=== PATIENT | female | born 1960 | race Caucasian/White ===

== ENCOUNTER 2018-01-08 23:59 | Observation (INO) | payer BC ==
[2018-01-09] MEDS ORDERED: GI COCKTAIL 45 ML (Maalox/Lidocaine) PO ONE (01:17)
[2018-01-09] MEDS ORDERED: Zofran 4 MG/2 ML VIAL IV ONE (01:17)
[2018-01-09] MEDS ORDERED: PROTONIX 40 MG IV IV ONE ×2 (01:17→02:12)
--- NOTE | 2018-01-09 01:26 | ERPHSYRPT ---
- History of Present Illness Time Seen by Provider: 01/09/18 00:50 Historian: patient Exam Limitations: other Patient Subjective Stated Complaint: pain in abdomen just below the sternum Triage Nursing Assessment: Pt A&O x3, complains of abdominal pain just below the sternum, stated that she felt this way at Thanksgiving time, lungs clear, bowel sounds heard in all 4 quadrants, pulses normal, appears to be uncomfortable but no other distress Physician History: PATIENT WITH A HISTORY OF HYPERTENSION COMPLAINS OF EPIGASTRIC PAIN X 2 DAYS, OCCASIONAL RADIATION TO BACK. DENIES NAUSEA, EMESIS OR DIARRHIEA Timing/Duration: day(s) Activities at Onset: none Quality: sharpness Abdominal Pain Onset Location: epigastric Pain Radiation: back Severity of Pain-Max: moderate Severity of Pain-Current: moderate Modifying Factors: Improves With: eating Associated Symptoms: heartburn Previous symptoms: same symptoms as today Allergies/Adverse Reactions: No Known Drug Allergies Allergy (Verified 01/09/18 00:58) Home Medications: Benazepril HCl [Benazepril HCl] 1 tab PO DAILY 01/09/18 [History] Hydrochlorothiazide [Hydrochlorothiazide] 1 tab PO DAILY 01/09/18 [History] Meloxicam [Meloxicam] 1 tab PO DAILY 01/09/18 [History] Metoprolol Succinate [Metoprolol Succinate] 1 tab PO DAILY 01/09/18 [History] - Review of Systems Constitutional: No Fever, No Chills Eyes: No Symptoms Ears, Nose, & Throat: No Symptoms Respiratory: No Symptoms, No Cough, No Dyspnea Cardiac: No Chest Pain, No Edema, No Syncope Abdominal/Gastrointestinal: Abdominal Pain, No Nausea, No Vomiting, No Diarrhea Genitourinary Symptoms: No Symptoms, No Dysuria Musculoskeletal: No Symptoms, No Back Pain, No Neck Pain Skin: No Rash Neurological: No Symptoms, No Dizziness, No Focal Weakness, No Sensory Changes Psychological: No Symptoms Endocrine: No Symptoms All Other Systems: Reviewed and Negative - Past Medical History Neurological History: No Pertinent History Cardiac History: Hypertension Respiratory History: No Pertinent History Endocrine Medical History: No Pertinent History Musculoskeletal History: Osteoarthritis - Past Surgical History Musculoskeletal: Orthopedic Surgery Female Surgical History: Hysterectomy - Social History Smoking Status: Never smoker Exposure to second hand smoke: No Drug Use: none Patient Lives Alone: Yes - Nursing Vital Signs Nursing Vital Signs: Initial Vital Signs Temperature 98.2 F 01/09/18 00:40 Blood Pressure 169/80 01/09/18 00:40 Pain Scale Pain Intensity 7 - Physical Exam General Appearance: no apparent distress, alert Eye Exam: PERRL/EOMI, eyes nml inspection Ears, Nose, Throat Exam: normal ENT inspection, pharynx normal, moist mucous membranes Neck Exam: normal inspection, non-tender, supple, full range of motion Respiratory Exam: normal breath sounds, lungs clear, No respiratory distress Cardiovascular Exam: regular rate/rhythm, normal heart sounds Gastrointestinal/Abdomen Exam: soft, normal bowel sounds, tenderness (SUPERIOR EPIGASTRIC, LUQ, AND RUQ TENDERNESS), No mass Back Exam: normal inspection, normal range of motion, No CVA tenderness, No vertebral tenderness Extremity Exam: normal inspection, normal range of motion, pelvis stable Neurologic Exam: alert, oriented x 3, cooperative, normal mood/affect, nml cerebellar function, sensation nml, No motor deficits Skin Exam: normal color, warm, dry SpO2 Interpretation: normal SpO2: 98 - CT Exams Abdomen/Pelvis CT Interpretation: Tele-radiologist Report (cholelithiasis, wall thickening and edema of the lower aspect of the stomach suggestive of gastritis with suspected ulceration along the lesser curvature , no free air) Ordered Tests: Active Orders 24 hr Category Date Time Status EKG-ER Only STAT Care 01/09/18 01:17 Active ABDOMEN AND PELVIS W CONTRAST [CT] Stat Exams 01/09/18 01:17 Taken AMYLASE Stat Lab 01/09/18 01:45 Completed CBC W DIFF Stat Lab 01/09/18 01:45 Completed CMP Stat Lab 01/09/18 01:45 Completed LIPASE Stat Lab 01/09/18 01:45 Completed TROPONIN Q3H Lab 01/09/18 01:45 Completed TROPONIN Q3H Lab 01/09/18 04:30 Ordered TROPONIN Q3H Lab 01/09/18 07:30 Ordered TROPONIN Q3H Lab 01/09/18 10:30 Ordered TROPONIN Q3H Lab 01/09/18 13:30 Ordered Medication Summary Generic Name Dose Route Start Last Admin Trade Name Freq PRN Reason Stop Dose Admin Sodium Chloride 1,000 mls @ 100 mls/hr 01/09/18 01:30 01/09/18 02:21 Sodium Chloride 0.9% 1000 Ml IV 02/08/18 01:29 100 mls/hr .Q10H MERRY Administration Discontinued Medications Generic Name Dose Route Start Last Admin Trade Name Jareth PRN Reason Stop Dose Admin Al Hydrox/Mg Hydrox/Simethicone Confirm 01/09/18 02:13 Maalox Es 30 Ml Unit Dose Administered 01/09/18 02:14 Dose 30 ml .ROUTE .STK-MED ONE Fentanyl Citrate 50 mcg 01/09/18 02:03 01/09/18 02:26 Sublimaze 100 Mcg/2 Ml IV 01/09/18 02:04 50 mcg STAT ONE Administration Fentanyl Citrate Confirm 01/09/18 02:25 Sublimaze 100 Mcg/2 Ml Administered 01/09/18 02:26 Dose 100 mcg .ROUTE .STK-MED ONE Lidocaine HCl Confirm 01/09/18 02:12 Xylocaine Hcl Viscous * Administered 01/09/18 02:13 Dose 15 ml .ROUTE .STK-MED ONE Magnesium Hydroxide 45 ml 01/09/18 01:17 01/09/18 02:21 Gi Cocktail 45 Ml (Maalox/Lidocaine) PO 01/09/18 01:18 45 ml STAT ONE Administration Ondansetron HCl 4 mg 01/09/18 01:17 01/09/18 02:21 Zofran 4 Mg/2 Ml Vial IV 01/09/18 01:18 4 mg STAT ONE Administration Ondansetron HCl Confirm 01/09/18 02:12 Zofran 4 Mg/2 Ml Vial Administered 01/09/18 02:13 Dose 4 mg .ROUTE .STK-MED ONE Pantoprazole Sodium 40 mg 01/09/18 01:17 01/09/18 02:21 Protonix 40 Mg Iv IV 01/09/18 01:18 40 mg STAT ONE Administration Pantoprazole Sodium Confirm 01/09/18 02:12 Protonix 40 Mg Iv Administered 01/09/18 02:13 Dose 40 mg IV .STK-MED ONE Lab/Rad Data: Laboratory Result Diagrams 01/09/18 01:45 01/09/18 01:45 Laboratory Results 01/09/18 01/09/18 01/09/18 Range/Units 01:45 01:45 01:45 WBC 10.0 (4.0-10.5) K/mm3 RBC 4.22 (4.1-5.4) M/mm3 Hgb 12.7 (12.0-16.0) gm/dl Hct 37.3 (35-47) % MCV 88.4 (78-100) fl MCH 30.1 (26-32) pg MCHC 34.0 (32-36) g/dl RDW 12.8 (11.5-14.0) % Plt Count 268 (150-450) K/mm3 MPV 10.1 H (6-9.5) fl Gran % 72.7 H (36.0-66.0) % Eos # (Auto) 0.06 (0-0.5) Absolute Lymphs (auto) 1.67 (1.0-4.6) Absolute Monos (auto) 0.97 (0.0-1.3) Lymphocytes % 16.7 L (24.0-44.0) % Monocytes % 9.7 (0.0-12.0) % Eosinophils % 0.6 (0.00-5.0) % Basophils % 0.3 (0.0-0.4) % Absolute Granulocytes 7.27 H (1.4-6.9) Basophils # 0.03 (0-0.4) Sodium 138 (137-145) mmol/L Potassium 3.2 L (3.5-5.1) mmol/L Chloride 102 (98-107) mmol/L Carbon Dioxide 23 (22-30) mmol/L Anion Gap 15.4 H (5-15) MEQ/L BUN 13 (7-17) mg/dL Creatinine 0.56 (0.52-1.04) mg/dL Estimated GFR > 60.0 ML/MIN Glucose 111 H (74-106) mg/dL Calcium 9.5 (8.4-10.2) mg/dL Total Bilirubin 0.70 (0.2-1.3) mg/dL AST 17 (14-36) U/L ALT 15 (0-35) U/L Alkaline Phosphatase 79 (38-126) U/L Troponin I < 0.012 (0.000-0.034) ng/mL Serum Total Protein 6.8 (6.3-8.2) g/dL Albumin 4.2 (3.5-5.0) g/dL Amylase 65 (30-110) U/L Lipase 123 (23-300) U/L - Progress Progress Note: 01/09/18 01:23 IV NORMAL SALINE 100ML/HR, GI COCKTAIL ORAL, ZOFRAN 4MG, PROTONIX 40MG IV, FENTANYL 50MCG IV 01/09/18 03:29 Discussed with : Cony (DISCUSSED WITH DR HAQ AT 0330 FOR OBSERVATION) - Departure Time of Disposition: 03:35 Departure Disposition: Observation Clinical Impression: ACUTE ABDOMINAL PAIN, PEPTIC ULCER DISEASE, CHOLELITHIASIS Condition: Stable Critical Care Time: No Referrals: AISHA OCAMPO [Primary Care Provider] -
[2018-01-09] MEDS ORDERED: Sodium Chloride 0.9% 1000 ML 1,000 ML IV SCH (01:30)
[2018-01-09 01:50] LABS: BASOPHIL % 0.3 % (0.0-0.4); Basophil (Absolute #) 0.03 (0-0.4); Eosinophil % 0.6 % (0.00-5.0); Eosinophil (Absolute #) 0.06 (0-0.5); Granulocyte Absolute (ANC) 7.27 (1.4-6.9); Granulocytes % 72.7 % (36.0-66.0); Hematocrit 37.3 % (35-47); Hemoglobin 12.7 gm/dl (12.0-16.0); Lymphocyte (Absolute #) 1.67 (1.0-4.6); Lymphocytes % 16.7 % (24.0-44.0); Mean Cell Volume 88.4 fl (78-100); Mean Corpuscular Hemoglobin 30.1 pg (26-32); Mean Platelet Volume 10.1 fl (6-9.5); Monocyte (Absolute #) 0.97 (0.0-1.3); Monocytes % 9.7 % (0.0-12.0); Platelet Count 268 K/mm3 (150-450); Red Blood Count 4.22 M/mm3 (4.1-5.4); Red Cell Distribution Width 12.8 % (11.5-14.0)
[2018-01-09] MEDS ORDERED: SUBLIMAZE 100 MCG/2 ML IV ONE (02:03)
[2018-01-09 02:08] LABS: ALBUMIN 4.2 g/dL (3.5-5.0); ALKALINE PHOSPHATASE 79 U/L (38-126); AMYLASE 65 U/L (30-110); ANION GAP 15.4 MEQ/L (5-15); BLOOD UREA NITROGEN 13 mg/dL (7-17); CHLORIDE 102 mmol/L (98-107); Calcium 9.5 mg/dL (8.4-10.2); Carbon Dioxide 23 mmol/L (22-30); Creatinine 1 0.56 mg/dL (0.52-1.04); Glucose 111 mg/dL (74-106); LIPASE 123 U/L (23-300); Potassium 3.2 mmol/L (3.5-5.1); SGOT/AST 17 U/L (14-36); SGPT/ALT 15 U/L (0-35); SODIUM 138 mmol/L (137-145); Total Protein 6.8 g/dL (6.3-8.2)
[2018-01-09] MEDS ORDERED: XYLOCAINE HCl Viscous ONE (02:12)
[2018-01-09] MEDS ORDERED: Zofran 4 MG/2 ML VIAL ONE (02:12)
[2018-01-09] MEDS ORDERED: MAALOX ES 30 ML UNIT DOSE ONE (02:13)
[2018-01-09] MEDS ORDERED: SUBLIMAZE 100 MCG/2 ML ONE (02:25)
[2018-01-09] MEDS ORDERED: Zofran 4 MG/2 ML VIAL IV PRN (03:38)
[2018-01-09] MEDS ORDERED: MORPHINE SULFATE 4 MG INJ IV PRN (03:39)
[2018-01-09] MEDS ORDERED: Sodium Chloride 0.9% W/ 20 mEq KCl/LITER 1,000 ML IV SCH (03:45)
--- NOTE | 2018-01-09 09:30 | XRAY ---
Indication: Abdominal pain. Multiple contiguous axial images obtained through the abdomen and pelvis using 80 cc Isovue 370 contrast only. Comparison: None. Lung bases demonstrates minimal bibasilar atelectasis/scarring and right base calcified granuloma. No infiltrate or effusion. Heart is not enlarged. Noncontrasted stomach and bowel loops appear nonobstructed. Abnormal wall thickening involving the distal stomach favoring gastritis. Small 1.3 cm focal outpouching involving the lesser curvature of the stomach concerning for ulceration. No walled off fluid collection or free air. Normal appendix. Scattered colonic diverticulosis greatest in the sigmoid. Tiny gallstones, 1 cm right renal cyst, and calcified splenic granulomas. Remaining liver, pancreas, spleen, adrenal glands, kidneys, ureters, bladder, and uterus appear unremarkable. Mild aortoiliac calcifications. No AAA or pathologic retroperitoneal lymphadenopathy. Osseous structures intact with mild degenerative changes throughout the spine including minimal grade 1 L4 spondylolisthesis without spondylolysis. Impression: 1. Abnormal gastric wall thickening favoring gastritis. Suspect small ulceration along the lesser curvature. No free air. 2. Cholelithiasis, colonic diverticulosis, and right renal cyst. Comment: Preliminary interpretation was made by [facility]. No critical discrepancy. CT DI 21.11
[2018-01-09] MEDS ORDERED: Toprol Xl 50 MG PO SCH (10:00)
[2018-01-09] MEDS ORDERED: Lotensin 10 MG PO SCH (10:00)
[2018-01-09] MEDS ORDERED: PROTONIX 40 MG IV IV SCH (10:00)
[2018-01-09] MEDS ORDERED: Mobic 7.5 MG PO SCH (11:30)
[2018-01-09] MEDS ORDERED: hydroDIURIL 25 MG PO SCH (11:30)
[2018-01-09 11:36] VITALS: BP 115/64; PULSE 58; O2SAT 96
--- NOTE | 2018-01-09 11:59 | PCM.HP ---
History of Present Illness - Chief Complaint Chief Complaint: acute abd pain for 2-3 days History of Present Illness: is a 57 year old female. came to ER with epigastric abdominal pain - Review of Systems Constitutional: No Fever, No Chills Eyes: No Symptoms Ears, Nose, & Throat: No Symptoms Respiratory: No Cough, No Short Of Breath Cardiac: No Chest Pain, No Edema, No Syncope Abdominal/Gastrointestinal: Abdominal Pain, No Nausea, No Vomiting, No Diarrhea Genitourinary Symptoms: No Dysuria Musculoskeletal: No Back Pain, No Neck Pain Skin: No Rash Neurological: No Dizziness, No Focal Weakness, No Sensory Changes Psychological: No Symptoms Endocrine: No Symptoms Hematologic/Lymphatic: No Symptoms Immunological/Allergic: No Symptoms Medications & Allergies Home Medications: Home Medication List Benazepril HCl [Benazepril HCl] 20 mg PO DAILY 01/09/18 [History Confirmed 01/09] Hydrochlorothiazide [Hydrochlorothiazide] 25 mg PO DAILY 01/09/18 [History Confirmed 01/09/18] Meloxicam [Meloxicam] 15 mg PO DAILY 01/09/18 [History Confirmed 01/09/18] Metoprolol Succinate [Metoprolol Succinate] 50 mg PO DAILY 01/09/18 [History Confirmed 01/09/18] Simvastatin [Zocor] 5 mg PO HS 01/09/18 [History Confirmed 01/09/18] Verapamil HCl 80 mg [Calan 80 mg] 80 mg PO TID 01/09/18 [History Confirmed 01/09/18] Allergies/Adverse Reactions: Allergies Allergy/AdvReac Type Severity Reaction Status Date / Time No Known Drug Allergies Allergy Verified 01/09/18 00:58 - Past Medical History Past Medical History: Yes Neurological History: No Pertinent History ENT History: No Pertinent History Cardiac History: Hypertension Respiratory History: No Pertinent History Endocrine Medical History: No Pertinent History Musculoskelatal History: Osteoarthritis GI Medical History: Ulcer History: No Pertinent History Pyscho-Social History: No Pertinent History Reproductive Disorders: No Pertinent History - Female History Are you now?: No - Past Surgical History Past Surgical History: Yes Neuro Surgical History: No Pertinent History Cardiac History: No Pertinent History Respiratory Surgery: No Pertinent History GI Surgical History: No Pertinent History Genitourinary Surgical Hx: No Pertinent History Musculskeletal Surgical Hx: Orthopedic Surgery Female Surgical History: Hysterectomy - Social History Smoking Status: Never smoker Exposure to second hand smoke: No Alcohol: None Drug Use: none - Physical Exam Vital Signs: Vital Signs - 24 hr Temp Pulse Resp BP Pulse Ox 01/09/18 11:35 98.2 F 58 L 16 115/64 96 01/09/18 08:29 98.3 F 60 16 150/67 92 L 01/09/18 08:00 98.3 F 60 16 150/67 92 L 01/09/18 04:39 98.1 F 64 20 133/76 96 01/09/18 03:33 98 01/09/18 00:40 98.2 F 169/80 Oxygen-Last 24 hours O2 Percentage 1 Liter = 24% General Appearance: no apparent distress, alert Neurologic Exam: alert, oriented x 3, cooperative, normal mood/affect, nml cerebellar function, nml station & gait, sensation nml, No motor deficits Eye Exam: PERRL/EOMI, eyes nml inspection Ears, Nose, Throat Exam: normal ENT inspection, TMs normal, pharynx normal, moist mucous membranes Neck Exam: normal inspection, non-tender, supple, full range of motion Respiratory Exam: normal breath sounds, lungs clear, No respiratory distress Cardiovascular Exam: regular rate/rhythm, normal heart sounds, normal peripheral pulses Gastrointestinal/Abdomen Exam: soft, normal bowel sounds, tenderness, No mass Back Exam: normal inspection, normal range of motion, No CVA tenderness, No vertebral tenderness Extremity Exam: normal inspection, normal range of motion, pelvis stable Skin Exam: normal color, warm, dry, No rash Lymphatic Exam: No adenopathy Results - Labs Lab/Micro Results: Lab Results-Last 24 Hours 01/09/18 01/09/18 Range/Units 07:30 10:31 Troponin I < 0.012 < 0.012 (0.000-0.034) ng/mL Assessment/Plan (1) Acute abdominal pain Current Visit: Yes Status: Acute Onset Date: ~01/09/18 Code(s): R10.9 - UNSPECIFIED ABDOMINAL PAIN (2) Cholelithiasis Current Visit: Yes Status: Acute Onset Date: ~01/09/18 Qualifiers: Cholelithiasis location: gallbladder Cholecystitis presence: without cholecystitis Biliary obstruction: without biliary obstruction Qualified Code(s): K80.20 - Calculus of gallbladder without cholecystitis without obstruction (3) Peptic ulcer disease Current Visit: Yes Status: Chronic Onset Date: ~01/09/18 Code(s): K27.9 - PEPTIC ULC, SITE UNSP, UNSP AC OR CHR, W/O HEMOR OR PERF
--- NOTE | 2018-01-09 13:22 | PCM.DCORD ---
- Discharge Discharge Date: 01/09/18 Disposition: Home, Self-Care Condition: Stable Prescriptions: New Sucralfate 1 gm [Carafate 1 GM] 1 gm PO BID #60 tablet PANTOPRAZOLE 40 mg Tablet [Protonix 40MG Tablet] 40 mg PO QPM 60 Days # 60 tab Continue Metoprolol Succinate 50 mg PO DAILY Hydrochlorothiazide 25 mg PO DAILY Benazepril HCl 20 mg PO DAILY Verapamil HCl 80 mg [Calan 80 mg] 80 mg PO TID Simvastatin [Zocor] 5 mg PO HS Discontinued Meloxicam [Meloxicam] 15 mg PO DAILY Follow up with: AISHA OCAMPO [Primary Care Provider] - 1 Week
[2018-01-09] MEDS ORDERED: CALAN 80 MG PO SCH (15:00)
[2018-01-09] MEDS ORDERED: Zocor 10MG PO SCH (22:00)
== END 2018-01-09 15:05 | disposition home or self-care (01) ==
LOC: ED 23:59 → MED SURG 01-09 04:24
PROVIDERS: ADMIT General Practice; ATTEND General Practice
DX: R10.13 Epigastric pain (principal); K80.20 Calculus of gallbladder without cholecystitis without obstruction; K27.9 Peptic ulcer, site unspecified, unspecified as acute or chronic, without hemorrhage or perforation; Z79.899 Other long term (current) drug therapy
CPT/HCPCS: 36000; 36415; 74177; 80053; 82150; 83690; 84484; 85025; 93005; 93268; 96360; 96361; 96374; 96375; 99285; J2270; J2405; J3010; A9270-GY; G0378

== ENCOUNTER 2018-02-10 07:33 | Day surgery (SDC) | payer BC ==
[~2018-02-10 07:33] MED LIST: Lactated Ringers 1,000 ML IV SCH
[2018-02-10] MEDS ORDERED: DIPRIVAN 200 MG/20 ML IV ONE (07:34)
[2018-02-10] MEDS ORDERED: Versed 2 MG/2 ML Injection IV ONE (07:34)
[2018-02-10 11:37] VITALS: O2SAT 98
[2018-02-10 11:42] VITALS: BP 127/63; PULSE 54
--- NOTE | 2018-02-10 15:17 | OP ---
SURGERY DATE/TIME: 02/10/2018 0840 PREOPERATIVE DIAGNOSIS: Epigastric pain, age over 50 with need for screening colonoscopy. POSTOPERATIVE DIAGNOSES: 1) Peptic ulcer disease. 2) Diverticulosis. PROCEDURES: 1) EGD with biopsy of antrum and duodenum. 2) Colonoscopy to terminal ileum. SURGEON: Curt Campuzano M.D. ANESTHESIA: MAC. SPECIMEN: Antral biopsy and duodenal biopsy. ESTIMATED BLOOD LOSS: None. COMPLICATIONS: None. FINDINGS: Mild antritis and duodenitis with what appeared to be a small scar from an old healed ulcer in the antrum. PATIENT PRESENTATION: This patient presents with severe epigastric pain. She had a CT scan which was concerning for a peptic ulcer as well as gallstones. The patient was also over age 50 and due for screening colonoscopy. The patient has been on proton pump inhibitor and Carafate and most of her symptoms have resolved. After discussion of risks, benefits of EGD and colonoscopy the patient wished to proceed. DESCRIPTION OF PROCEDURE: The patient was brought to the endoscopy suite and placed in left lateral decubitus position. Placed under MAC anesthesia. Attention was first placed to EGD. The scope was gently advanced in the mouth and directly advanced into the esophagus. The esophagus was traversed. The stomach was insufflated. The scope was passed to the antrum. There was mild antritis. There was a couple small white scars that appeared to be old healed ulcers in the antrum. The scope advanced through the pylorus and first, second and third portions of the duodenum. There was very mild duodenitis in the first portion. The second and third portion were traversed and appeared normal. The scope was withdrawn to the duodenal bulb and a biopsy was taken. The scope was withdrawn back into the stomach. Retroflexion was performed. There was no obvious hiatal hernia. A biopsy was performed of the antrum and sent for Helicobacter pylori testing. The scope was withdrawn to gastroesophageal junction which appeared normal. The stomach was insufflated. The scope was withdrawn and the esophagus further evaluated with no obvious abnormalities. The scope was withdrawn and this part of the procedure complete. Attention was then turned to colonoscopy. Rectal exam was performed without any abnormality. The scope was gently advanced in the rectum. The scope was gently and slowly advanced throughout the sigmoid colon. The sigmoid colon was fairly rigid and fixed and somewhat difficult to traverse. The scope was then slowly advanced all the way to the cecum. This did require a little bit of external pressure. The ileocecal valve and appendiceal orifice were identified. Bowel prep was excellent. Ileocecal valve was intubated. The terminal ileum appeared normal. The scope was then withdrawn back into the cecum. The scope was further withdrawn and the colon further evaluated. There was diverticulosis most significant in the sigmoid and left colon but few diverticulum extending all the way to the right colon. There were not any other abnormalities. The scope was withdrawn all the way to the rectum. Retroflexion was performed. The rectum was desufflated. The scope withdrawn. The patient was recovered and taken to PACU in stable condition with plans for continued proton pump inhibitor therapy and the patient will need repeat colonoscopy in ten years unless symptoms develop.
== END 2018-02-10 10:50 | disposition home or self-care (01) ==
LOC: SDC 07:33
PROVIDERS: ATTEND Surgery
DX: K27.9 Peptic ulcer, site unspecified, unspecified as acute or chronic, without hemorrhage or perforation (principal); K57.90 Diverticulosis of intestine, part unspecified, without perforation or abscess without bleeding; R10.13 Epigastric pain; Z12.11 Encounter for screening for malignant neoplasm of colon; K29.60 Other gastritis without bleeding; K29.80 Duodenitis without bleeding; I10 Essential (primary) hypertension; K21.9 Gastro-esophageal reflux disease without esophagitis
CPT/HCPCS: J2250; J2704